=== PATIENT | male | born 1945 | race Caucasian/White ===

== ENCOUNTER 2023-07-09 00:40 | Observation (INO) | payer MEDICARE, SELFPAY ==
[2023-07-09] VITALS (12 sets, daily range): BP systolic 147–187; BP diastolic 70–99; PULSE 50–80; RESP 15–19; TEMP 36.6–36.8; O2SAT 94–98; BMI 31.9; BMI 32.3
--- NOTE | 2023-07-09 00:37 | ECG_ITS ---
APPROVED REPORT Exam: Resting ECG HR:69 bpm ECG Measurements Heart Rate 69 AXES UT 173 P 62 QRSd 104 QRS 54 QT 400 T 79 QTc 419 Conclusion SINUS RHYTHM NONSPECIFIC T-WAVE ABNORMALITY BORDERLINE ECG Electronically signed by : NICKIE MORROW, 07/20/2023 15:14:54
--- NOTE | 2023-07-09 00:57 | XR_ITS ---
PROCEDURE INFORMATION: Exam: XR Chest Exam date and time: 07/09/2023 12:59 AM Age: 78 years old Clinical indication: Pain; Chest pressure; Additional info: Cp TECHNIQUE: Imaging protocol: Radiologic exam of the chest. Views: 1 view. COMPARISON: No relevant prior studies available. FINDINGS: Lungs: Unremarkable. No consolidation. Pleural spaces: Unremarkable. No pleural effusion. No pneumothorax. Heart/Mediastinum: Unremarkable. No cardiomegaly. Bones/joints: Unremarkable. IMPRESSION: No acute findings.
[2023-07-09 01:04] LABS: Chloride 108 mmol/L (98-107); Potassium 4.1 mmoL/L (3.5-5.1); Sodium 139 mmol/L (136-145)
[2023-07-09 01:07] LABS: Alanine Aminotransferase 28 U/L (12-78); Albumin/Globulin Ratio 1.2 (1.1-1.8); Alkaline Phosphatase 148 U/L (38-126); Anion Gap 7.1 mEq/L (5-15); Aspartate Amino Transferase 36 U/L (17-59); Bilirubin,Total 1.2 mg/dl (0.2-1.3); Blood Urea Nitrogen 13 mg/dl (9-20); Calcium 9.3 mg/dl (8.4-10.2); Carbon Dioxide 28 mmol/L (22.0-30.0); Creatinine Clearance Estimated 71 mL/min (50-200); Estimated Glomerular Filt Rate 59 ml/min (>60); GFR (African American) 71 ML/MIN (>60); Globulin 3.4 g/dL (1.3-3.2); Glucose 144 mg/dl (74-100); Total Protein,Serum 7.4 g/dl (6.3-8.2)
[2023-07-09 01:08] LABS: Basophils # 0.1 K/mm3 (0-0.2); Eosinophils # 0.3 K/mm3 (0.0-0.4); Eosinophils % 5.7 % (0.1-12.0); Hematocrit 47.7 % (42.0-52.0); Hemoglobin 15.9 g/dL (14.1-18.0); Lymphocytes # 1.3 K/mm3 (0.7-4.5); Lymphocytes % 22.8 % (10-50); Mean Corpuscular HGB Conc 33.2 g/dL (31.8-35.4); Mean Corpuscular Hemoglobin 30.7 pg (27.0-31.2); Mean Corpuscular Volume 92.4 fl (80-94); Mean Platelet Volume 11.5 fl (7.4-10.4); Monocytes # 0.3 K/mm3 (0.1-1.0); Monocytes % 5.8 % (1.7-9.3); Neutrophils # 3.8 K/mm3 (1.8-7.8); Neutrophils % 64.8 % (37.0-80.0); Platelet Count 121 K/mm3 (142-424); Red Blood Count 5.17 M/mm3 (4.60-6.20); White Blood Count 5.8 K/mm3 (4.8-10.8)
[2023-07-09 01:19] LABS: Troponin I 0.02 ng/ml (0.00-0.034)
--- NOTE | 2023-07-09 01:33 | PC.NURSE ---
Dr. Fallon paged
--- NOTE | 2023-07-09 01:36 | PC.NURSE ---
2nd ekg completed at this time. pt voices no needs.
--- NOTE | 2023-07-09 01:39 | [facility].EDCP ---
Discharge Plan Disposition Chief Complaint: Chest Pain Referrals Follow up/Referrals: Provider,Referral, [Primary Care Provider] - See instructions Clinical Impressions Clinical Impression: Chest pain Discharge ED Provider: Vincenzo Farris General Chief Complaint: Chest Pain Stated Complaint: CP, L arm pain Time Seen by Provider: 07/09/23 00:50 Mode of Arrival: EMS Source of Information: Patient and EMS Limitations: No Limitations Description of Symptoms (Recalled from ER Triage Doc. by RN): Patient to ED via [facility] with complaints of midsternal chest pain that started around 2330. He states that prior in the day he had left arm pain that was relieved with advil. Patient denies SOA and described pain at a 1/10 after 324 chewable ASA and nitro spray administered compared to initial chest pain of 4/10 upon EMS arrival. History of Present Illness HPI narrative: 78-year-old male who states he has not seen a doctor in many years, has no known medical conditions, no prescriptions, no known drug allergies presents to the ER with concerns of left arm pain and chest pain. Patient states around 2 or 3 PM he was sitting in his recliner and developed left arm pain. He took ibuprofen and states it went away so he did not think much of it. He states around 11:30 PM he was laying down and started having left arm pain radiating to the left chest. He described as 4 out of 10 pain. Patient did have associated shortness of breath. EMS was called and patient was severely hypertensive with them. They administered 1 dose of nitro spray and his pain improved to a 1 out of 10. Patient also received 324 mg aspirin from EMS prior to arrival. His blood pressure also improved for them. Twelve-lead provided by EMS did not demonstrate findings of STEMI. On my assessment, patient states he still has 1 out of 10 pain but is breathing comfortably. He states he has never had similar symptoms, no personal cardiac history. No other associated symptoms. Related Data Allergies Allergy/AdvReac Type Severity Reaction Status Date / Time No Known Allergies Allergy Verified 07/09/23 01:50 [facility] Disclaimer: The information contained in this section may have been updated after the patient was seen, as this information can be updated by other users. Social History Smoking Status: Never smoker alcohol intake: never current occupational status: other Travel in the last 8 weeks: None ROS Obtained: Yes All systems reviewed & no additional complaints except as documented Constitutional Constitutional: Denies chills, Denies fever(s), Denies headache(s) and Denies weakness Eyes Eyes: Denies change in vision ENT Ears, Nose, Mouth, and Throat: Denies dizziness, Denies headache(s), Denies nasal congestion and Denies sore throat Cardiovascular Cardiovascular: Reports chest pain, Reports dyspnea and Denies leg edema Respiratory Respiratory: Denies cough and Reports dyspnea Gastrointestinal Gastrointestingal: Denies constipation, diarrhea, nausea or vomiting Genitourinary Male Genitourinary: Denies difficulty urinating Musculoskeletal Musculoskeletal: Denies arthralgias, Denies myalgias, Denies numbness and Denies tingling Integumentary/Breasts Skin/Breast: Denies change in pigmentation Neurologic Neurologic: Denies dizziness, Denies headache(s), Denies numbness, Denies tingling and Denies weakness Physical Exam General General appearance: alert and in no apparent distress Head Head exam: atraumatic and normocephalic Eye Eye exam: Present PERRL and EOMI ENT ENT exam: Present mucous membranes moist Neck Neck exam: Present normal inspection and full ROM Chest Chest inspection: Present symmetric chest wall rise Respiratory Respiratory exam: Present normal lung sounds bilaterally; Absent respiratory distress, wheezes or stridor Cardiovascular Cardiovascular exam: Present regular rate and normal rhythm Abdominal Exam Abdominal exam: Present soft; Absent distention, tenderness, guarding or rebound Extremities Exam Extremities exam: Present full ROM Neurological Exam Neurological exam: Present alert and oriented X3; Absent motor sensory deficit Psychiatric Psychiatric exam: Present normal affect and normal mood Skin Skin exam: Present warm and dry HEART Score HEART Score HEART Score assessment performed?: Yes History (anamnesis): Highly suspicious ECG: Non-specific disturbance Age: >65 years Risk factors: No known risk factors Troponin: </= normal limit HEART Score: 5 Critical Care Critical Care Time Critical Care Time: No Medical Decision Making Georgi Inquiry Pt receiving controlled substance: No Vital Signs Vital Signs: 07/09/23 00:40 Temperature 97.8 F Temperature Source Oral Pulse Rate [Right] 69 Respiratory Rate 16 Blood Pressure [Right Arm] 170/99 H Blood Pressure Mean [Right Arm] 122 Blood Pressure Source [Right Arm] Automatic Cuff Blood Pressure Position [Right Arm] Sitting 02 Sat by Pulse Oximetry 95 Oxygen Delivery Method Room Air Lab Data Labs: Lab Results 07/09/23 00:30: WBC 5.8, RBC 5.17, Hgb 15.9, Hct 47.7, MCV 92.4, MCH 30.7, MCHC 33.2, RDW 15.0, Plt Count 121 L, MPV 11.5 H, Neut % (Auto) 64.8, Lymph % (Auto) 22.8, Hyde % (Auto) 5.8, Eos % (Auto) 5.7, Baso % (Auto) 1.0, Neut # (Auto) 3.8, Lymph # (Auto) 1.3, Hyde # (Auto) 0.3, Eos # (Auto) 0.3, Baso # (Auto) 0.1, Sodium 139, Potassium 4.1, Chloride 108 H, Carbon Dioxide 28, Anion Gap 7.1, BUN 13, Creatinine 1.20, Estimated Creat Clear 71, Estimated GFR 59, Est GFR ( Amer) 71, Glucose 144 H, Calcium 9.3, Total Bilirubin 1.2, AST 36, ALT 28, Alkaline Phosphatase 148 H, Troponin I 0.02, Total Protein 7.4, Albumin 4.0, Globulin 3.4 H, Albumin/Globulin Ratio 1.2 07/09/23 00:30 07/09/23 00:30 Response Orders (Tests/Meds): ED MEDICATIONS Generic Name Dose Route Start Last Admin Trade Name Freq PRN Reason Stop Dose Admin Clopidogrel Bisulfate 300 mg 07/09/23 01:47 Clopidogrel 300mg Tablet PO 07/09/23 01:48 ONCE ONE Enoxaparin Sodium 95 mg 07/09/23 02:00 Enoxaparin 100mg/Ml Syringe 1 mg/kg (95 mg) 08/08/23 01:59 SQ Q12H [facility] Metoprolol Tartrate 25 mg 07/09/23 01:47 Metoprolol Tartrate 50mg Tablet PO 07/09/23 01:48 ONCE ONE ORDERS Category Date Time Status CXR --portable [XR chest portable] Stat Exams 07/09/23 00:57 Completed CBC w/Auto Diff [Complete Blood Count Auto Diff] Stat Lab 07/09/23 00:30 Completed CMP [Comprehensive Metabolic Panel] Stat Lab 07/09/23 00:30 Completed Trop I [Troponin I] Stat Lab 07/09/23 00:30 Completed Troponin I Q3H Lab 07/09/23 04:00 Ordered Troponin I Q3H Lab 07/09/23 07:00 Ordered MDM Narrative Medical Decision Narrative: In summary, this 78year old male with no known comorbidities presents to the emergency department today with left arm pain, chest pain, shortness of breath all of which have improved since receiving nitro spray from EMS. On initial evaluation patient is hemodynamically stable, afebrile, resting comfortably, 1 out of 10 pain and no shortness of breath on assessment. Cardiopulmonary exam is reassuring though patient is hypertensive. Remainder of exam benign. Differential diagnosis includes but is not limited to ACS, pneumothorax, esophageal spasm, muscle spasm, hypertension. Based on these concerns, I ordered cardiac workup. Initial EKG personally interpreted demonstrates normal sinus rhythm, rate 69, normal intervals, no STEMI, normal axis. Labs personally reviewed demonstrate initial troponin 0.02, no leukocytosis or anemia, CMP with slight hyperchloremia, nonspecific and nonactionable, BUN 13, creatinine 1.20, mild elevation in alkaline phosphatase, nonspecific, nonactionable at this time. In the setting of moderate heart score and troponin of 0.02, repeat EKG was ordered though patient remains asymptomatic. On second ECG identified sinus bradycardia, rate 55, normal axis, normal intervals, trace elevation in lead III, aVF but does not meet criteria for STEMI. XR personally interpreted demonstrates no acute intrathoracic abnormality. See radiology read for final interpretation. I called cardiology and discussed these findings as well as patient's current symptoms with Dr. Fallon. He recommended aspirin which had already been administered, he also recommended loading dose of 300 mg Plavix followed by 75 mg daily, Lovenox 1 mg/kg twice daily, metoprolol tartrate 25 mg twice daily, and daily aspirin 81 mg. Patient is bradycardic with heart rate in the low 50s so metoprolol was ordered but held, but all other medications have been administered. He is recommending admission. I discussed results and recommendations with the patient. He continues to be resting comfortably on reassessment and has not had any recurrence of his initial pains. He is amenable to the plan for admission. I discussed this case with the hospitalist including Dr. Fallon's recommendations for ongoing management. Patient has been accepted for admission.
--- NOTE | 2023-07-09 01:42 | PC.NURSE ---
paged dr hinton again via registration
--- NOTE | 2023-07-09 01:44 | PC.NURSE ---
call back from dr hinton
[2023-07-09] MEDS: ENOXAPARIN 100MG/ML SYRINGE 95 MG SQ ×2 (01:58→14:49)
--- NOTE | 2023-07-09 02:00 | EXP.HP ---
History of Present Illness *Admission Date: 07/09/23 *Reason for visit:: CP *History of present illness: This is a 78-year-old male with unknown past medical history, who states he has not seen a doctor in many years, no prescriptions, no known drug allergies presents to the ED with concerns of left arm pain and chest pain. Patient states around 2 or 3 PM he was sitting in his recliner and developed left arm pain. He took ibuprofen and states it went away so he did not think much of it. He states around 11:30 PM he was laying down and started having left arm pain radiating to the left chest. He described as 4 out of 10 pain. Patient did have associated shortness of breath. EMS was called and patient was severely hypertensive with them. They administered 1 dose of nitro spray and his pain improved to a 1 out of 10. Patient also received 324 mg aspirin from EMS prior to arrival. His blood pressure also improved for them. Twelve-lead provided by EMS did not demonstrate findings of STEMI. On my assessment, patient states he still has 1 out of 10 pain but is breathing comfortably. He states he has never had similar symptoms, no personal cardiac history. No other associated symptoms. Admitted for further work up. [facility] Disclaimer: The information contained in this section may have been updated after the patient was seen, as this information can be updated by other users. Medical History (Updated 07/09/23 @ 06:41 by Milton Candelaria APRN) Appendicitis Surgical History (Updated 07/09/23 @ 02:49 by Amber Campbell RN) H/O kidney removal History of appendectomy Family History (Updated 07/09/23 @ 02:49 by Amber Campbell RN) Other Family history of myocardial infarction Social History (Updated 07/09/23 @ 02:50 by Amber Campbell RN) Smoking Status: Never smoker alcohol intake: never current occupational status: retired and other Travel in the last 8 weeks: None Review of Systems Review of Systems Review of systems:: pertinent systems reviewed and negative unless documented below Constitutional Constitutional: Denies headache(s) and Denies weakness ENT Ears, Nose, Mouth, and Throat: Denies dizziness and Denies headache(s) *Musculoskeletal Musculoskeletal: Denies numbness and Denies tingling *Neurologic Neurologic: Denies dizziness, Denies headache(s), Denies numbness, Denies tingling and Denies weakness Meds Home Medications and Allergies New Prescriptions to Start Prescriptions: Allergies Allergy/AdvReac Type Severity Reaction Status Date / Time No Known Allergies Allergy Verified 07/09/23 01:50 Exam Data for Last 24 hours Vital signs and Labs for Last 24 Hours: Temp Pulse Resp BP Pulse Ox O2 Del Method 97.8 F 69 16 170/99 H 95 Room Air 07/09/23 00:40 07/09/23 00:40 07/09/23 00:40 07/09/23 00:40 07/09/23 00:40 07/09/23 00:40 Laboratory Results - last 24 hr 07/09/23 00:30: WBC 5.8, RBC 5.17, Hgb 15.9, Hct 47.7, MCV 92.4, MCH 30.7, MCHC 33.2, RDW 15.0, Plt Count 121 L, MPV 11.5 H, Neut % (Auto) 64.8, Lymph % (Auto) 22.8, Runnels % (Auto) 5.8, Eos % (Auto) 5.7, Baso % (Auto) 1.0, Neut # (Auto) 3.8, Lymph # (Auto) 1.3, Runnels # (Auto) 0.3, Eos # (Auto) 0.3, Baso # (Auto) 0.1, Sodium 139, Potassium 4.1, Chloride 108 H, Carbon Dioxide 28, Anion Gap 7.1, BUN 13, Creatinine 1.20, Estimated Creat Clear 71, Estimated GFR 59, Est GFR ( Amer) 71, Glucose 144 H, Calcium 9.3, Total Bilirubin 1.2, AST 36, ALT 28, Alkaline Phosphatase 148 H, Troponin I 0.02, Total Protein 7.4, Albumin 4.0, Globulin 3.4 H, Albumin/Globulin Ratio 1.2 I & O for Last 24 hours: Intake & Output 07/06/23 07/07/23 07/08/23 07/09/23 23:59 23:59 23:59 23:59 Weight 95.254 kg Constitutional Constitutional: mild distress and obese *Routine HEENT Exam Head: Present normocephalic Eye: Present EOMI and PERRL ENT: Present mucous membranes moist *Routine Neck Exam Neck: Present supple; Absent lymphadenopathy *Routine Respiratory Exam Respiratory: Present CTA bilaterally *Routine Cardiovascular Exam Cardiovascular: Present RRR, Normal S1, Normal S2 and bradycardia *Routine Abdominal Exam Abdominal: Present soft and normoactive bowel sounds; Absent tenderness *Routine Rectal Exam Rectal:: deferred *Routine Genitalia Exam Genitalia:: deferred *Routine Extremities Exam Extremities: Absent cyanosis, clubbing or edema *Routine Skin Exam Skin: Present warm; Absent rash *Routine Neurological Exam Neurological: Present alert and oriented X3 H&P: Result Imaging and Cardiology EKG: Status: image reviewed by me, Preliminary report and final report Assessment and Plan *Assessment and plan (1) Chest pain: Status: Acute Qualifiers: Chest pain type: unspecified Qualified Code(s): R07.9 - Chest pain, unspecified Category: Medical Code(s): R07.9 - Chest pain, unspecified (2) Troponin level elevated: Status: Acute Category: Medical Code(s): R79.89 - Other specified abnormal findings of blood chemistry (3) Bradycardia: Status: Acute Category: Medical Code(s): R00.1 - Bradycardia, unspecified (4) Hypertension: Status: Acute Qualifiers: Hypertension type: unspecified Qualified Code(s): I10 - Essential (primary) hypertension Category: Medical Code(s): I10 - Essential (primary) hypertension (5) Obesity (BMI 30.0-34.9): Status: Acute Category: Medical Code(s): E66.9 - Obesity, unspecified Plan 78-year-old male with unknown past medical history, who states he has not seen a doctor in many years, no prescriptions, no known drug allergies presents to the ED with concerns of left arm pain and chest pain. on arrival patient stable chest pain-free. Checks x-ray negative/. EKG with sinus rhythm. No ST changes. Nonspecific T variation. Initial troponin was 0.02, has been trending up. Cardiology was consulted. Discussed with the ER for admission. -Chest pain with trending troponin, hypertention and bradycardia: to rule out ACS continue Plavix aspirin and nitroglycerin given inroute and at the ER Monitor for chest pain. nitroglycerin sublingual as needed Started on metoprolol 25 twice daily. Being held because of the bradycardia Cardiology consult. Trending troponin. Continue monitoring morning labs Obtain lipid profile to assess for cardiac risk Ultrasound of the kidneys -Obesity: Encouraged weight management and reducing weight. Encouraged to establish PCP to follow-up on chronic conditions On Plavix and aspirin and statin. Protonix for GI bleed protection Full code Attending attestation Patient was seen and evaluated at the bedside myself, agree with YADIRA note. await cardiology eval, echo ordered
[2023-07-09] MEDS: CLOPIDOGREL 300MG TABLET 300 MG PO (02:02)
--- NOTE | 2023-07-09 02:18 | PC.NURSE ---
report given to wesley lopez. re-verified with waqas ramos that we are not giving the metoprolol at this time.
--- NOTE | 2023-07-09 02:30 | PC.NURSE ---
PT ARRIVED TO FLOOR AT THIS TIME
[2023-07-09] MEDS: 0.9 % SODIUM CHLORIDE 1000ML 1,000 ML 50 ML IV (02:34)
--- NOTE | 2023-07-09 03:10 | PC.NURSE ---
Pt asked for nurse to call and let his granddaughter know he was in the hospital, nurse called and was able to get ahold of granddaughter @[phone].
--- NOTE | 2023-07-09 03:11 | PC.NURSE ---
Pt is alert and oriented x4, and currently is tolerating RA well. Pt arrived to the unit approx. 0230, pt denies any current chest pain and denies needs. Pt is extremely pleasant and admits to taking no medications and no other issues besides chest pain that he states no longer exists. Pt is able to walk and dose not appear to require assistance with ADLs. Pt HR is slightly adrian and ranges from 50-55, Pt currently on telemetry to prior cheat pain. Pt denies any pain and needs at this time.
[2023-07-09 04:38] LABS: Troponin I 0.11 ng/ml (0.00-0.034)
[2023-07-09 07:46] LABS: Basophils % 0.6 % (0.1-2.0); Eosinophils # 0.3 K/mm3 (0.0-0.4); Eosinophils % 4.9 % (0.1-12.0); Hematocrit 47.2 % (42.0-52.0); Hemoglobin 15.2 g/dL (14.1-18.0); Lymphocytes # 1.2 K/mm3 (0.7-4.5); Mean Corpuscular HGB Conc 32.3 g/dL (31.8-35.4); Mean Corpuscular Hemoglobin 30.5 pg (27.0-31.2); Mean Corpuscular Volume 94.4 fl (80-94); Mean Platelet Volume 11.9 fl (7.4-10.4); Monocytes # 0.3 K/mm3 (0.1-1.0); Monocytes % 5.7 % (1.7-9.3); Neutrophils # 3.8 K/mm3 (1.8-7.8); Neutrophils % 67.9 % (37.0-80.0); Platelet Count 119 K/mm3 (142-424); Red Blood Count 4.99 M/mm3 (4.60-6.20); Red Cell Distribution Width 14.9 % (11.5-17.5); White Blood Count 5.6 K/mm3 (4.8-10.8)
[2023-07-09 07:52] LABS: Chol/HDL Ratio 11.2 (1-3.5); Cholesterol 236 mg/dl (140-200); HDL Cholesterol 21 mg/dl (40-60); Triglycerides 185 mg/dl (30-150); VLDL Cholesterol 37 mg/dL (0-40)
[2023-07-09 07:53] LABS: Alanine Aminotransferase 24 U/L (12-78); Albumin/Globulin Ratio 1.3 (1.1-1.8); Alkaline Phosphatase 117 U/L (38-126); Anion Gap 10.3 mEq/L (5-15); Aspartate Amino Transferase 33 U/L (17-59); Bilirubin,Total 1.2 mg/dl (0.2-1.3); Blood Urea Nitrogen 13 mg/dl (9-20); Calcium 9.1 mg/dl (8.4-10.2); Carbon Dioxide 23 mmol/L (22.0-30.0); Chloride 109 mmol/L (98-107); Creatinine Clearance Estimated 72 mL/min (50-200); Estimated Glomerular Filt Rate 59 ml/min (>60); GFR (African American) 71 ML/MIN (>60); Globulin 3.1 g/dL (1.3-3.2); Glucose 105 mg/dl (74-100); Magnesium 2.2 mg/dl (1.6-2.3); Potassium 4.3 mmoL/L (3.5-5.1); Sodium 138 mmol/L (136-145); Total Protein,Serum 7.1 g/dl (6.3-8.2)
[2023-07-09 07:58] LABS: Troponin I 0.14 ng/ml (0.00-0.034)
[2023-07-09 08:03] LABS: Direct LDL Cholesterol 140.87 mg/dL (100-129)
[2023-07-09 08:05] LABS: 25-OH Vitamin D, Total 33.5 ng/mL (30-100)
[2023-07-09] MEDS: PANTOPRAZOLE 40MG TABLET 40 MG PO (08:21)
--- NOTE | 2023-07-09 15:42 | PC.NURSE ---
Addendum entered by Kyleigh Mccormick RN 07/09/23 15:48: Patient normal sinus rhythm on heart monitor during shift Original Note: No chest pain noted this shift. VS stable and patient remained on room air.
[2023-07-09] MEDS: LISINOPRIL 10MG TABLET 10 MG PO (16:46)
[2023-07-10 00:35] VITALS: BP 200/100; PULSE 66; RESP 18; TEMP 36.4; O2SAT 96
--- NOTE | 2023-07-10 00:35 | PC.NURSE ---
Pt manual BP 200/100, Notified GABI Rose, no new orders at this time, Pt has cardiology consult later today on the 07/10/2023. Pt BP will not read via electronic data scope, manual BP taken
--- NOTE | 2023-07-10 02:20 | PC.NURSE ---
0024 EQ, TRIPE FINISHER NOTIFIED OF MANUAL BP 200/100, TRIPE FINISHER STATED PT IS TO BE CATHED THIS AFTERNOON, NO NEW ORDERS AT THIS TIME . 0040 THIS RN ENTERED PT ROOM TO RE-CHECK BP AND HR AND REASSESS SYMPTOMS. PT REFUSED VITALS AND STATED THAT HE WANTED TO GO HOME, PT STATED I HAVE BEEN HERE FOR ALMOST 2 DAYS AND YOU ALL HAVE DONE NOTHING FOR ME, I MIGHT WELL GO HOME PT VISIBLY UPSET AND ANXIOUS ABOUT ELEVATED BP BUT OTHERWISE STATES THAT HE FEELS FINE. PT DENIES CHEST PAIN AND ANY OTHERS SYMPTOMS. CHARGE NURSE Hina VALLEJO NOTIFIED AT THIS TIME AND CHARGE NURSE AND THIS NURSE ATTEMPTED TO EDUCATE PT ON REASON FOR HOSPITAL STAY AND PLAN OF CARE. 0057 EQ, TRIPE FINISHER NOTIFIED THAT PT WANTS TO AMA D/T NO INTERVENTIONS BEING DONE DURING HIS STAY SINCE ARRIVAL. 0100 EQ, TRIPE FINISHER PLACED AN ORDER FOR CLONIDINE AND DID NOT UPDATE THIS RN OR PT THAT AN ORDER WAS PLACED BEFORE PT LEFT HOSPITAL AMA 0105 EQ, TRIPE FINISHER ARRIVED IN ROOM EDUCATED PT ON REASONS FOR HOSPITAL STAY AND IMPLICATIONS OF LEAVING AMA, PT SIGNED AMA FORM THIS NURSE SIGNED AMA FORM WITNESS 0110 THIS NURSE REMOVED PT IV AT THIS TIME, PT STATED THAT HIS DAUGHTER WAS COMING TO GET HIM 0113 EQ, TRIPE FINISHER WROTE PT PRESCRIPTIONS TO FILL AT HOME PHARMACY 0115 PT LEFT FLOOR AT THIS TIME ACCOMPANIED BY ODALIS HOPKINS, PT WAITING IN ED WAITING ROOM FOR DAUGHTER TO ARRIVE.
--- NOTE | 2023-08-01 11:15 | EXP.DC.SUM ---
General Admission date:: 07/09/23 Discharge date: 07/10/23 HPI HPI HPI: This is a 78-year-old male with unknown past medical history, who states he has not seen a doctor in many years, no prescriptions, no known drug allergies presents to the ED with concerns of left arm pain and chest pain. Patient states around 2 or 3 PM he was sitting in his recliner and developed left arm pain. He took ibuprofen and states it went away so he did not think much of it. He states around 11:30 PM he was laying down and started having left arm pain radiating to the left chest. He described as 4 out of 10 pain. Patient did have associated shortness of breath. EMS was called and patient was severely hypertensive with them. They administered 1 dose of nitro spray and his pain improved to a 1 out of 10. Patient also received 324 mg aspirin from EMS prior to arrival. His blood pressure also improved for them. Twelve-lead provided by EMS did not demonstrate findings of STEMI. On my assessment, patient states he still has 1 out of 10 pain but is breathing comfortably. He states he has never had similar symptoms, no personal cardiac history. No other associated symptoms. Admitted for further work up. Hospital Course Hospital Course Hospital Course: patient left AMA, see nursing notes Exam Data for Last 24 hours Vital signs and Labs for Last 24 Hours: Temp Pulse Resp BP Pulse Ox O2 Del Method 97.5 F L 66 18 200/100 H 96 Room Air 07/10/23 00:35 07/10/23 00:35 07/10/23 00:35 07/10/23 00:35 07/10/23 00:35 07/10/23 00:40 DS: Diagnosis Discharge Diagnosis (1) Chest pain: Status: Acute Code(s): R07.9 - Chest pain, unspecified Qualifiers: Chest pain type: unspecified Qualified Code(s): R07.9 - Chest pain, unspecified (2) Troponin level elevated: Status: Acute Code(s): R79.89 - Other specified abnormal findings of blood chemistry (3) Bradycardia: Status: Acute Code(s): R00.1 - Bradycardia, unspecified (4) Hypertension: Status: Acute Code(s): I10 - Essential (primary) hypertension Qualifiers: Hypertension type: unspecified Qualified Code(s): I10 - Essential (primary) hypertension (5) Obesity (BMI 30.0-34.9): Status: Acute Code(s): E66.9 - Obesity, unspecified Meds Home Medications and Allergies Home Medications Medication Instructions Recorded Confirmed Type No Known Home Medications 07/09/23 07/09/23 History New Prescriptions to Start Prescriptions: Allergies Allergy/AdvReac Type Severity Reaction Status Date / Time No Known Allergies Allergy Verified 07/09/23 01:50 Discharge Plan Disposition Patient Disposition: Left Against Medical Advice Condition: Fair Providers Admit Provider: Jessenia Alvarado Attending Provider: Jessenia Alvarado
== END 2023-07-10 01:15 | disposition left against medical advice (07) ==
LOC: ER 02:00 → 2ND 02:04
PROVIDERS: Nurse Practitioner Family; Admitting Provider Internal Medicine; Emergency Provider Emergency Medicine; Visit Provider Internal Medicine
DX: R07.9 Chest pain, unspecified (principal); R79.89 Other specified abnormal findings of blood chemistry; R00.1 Bradycardia, unspecified; I10 Essential (primary) hypertension; E66.9 Obesity, unspecified; R06.02 Shortness of breath; Z68.32 Body mass index [BMI] 32.0-32.9, adult
CPT/HCPCS: 36415; 71045; 80053; 80061; 82306; 83036; 83735; 84484; 85025; 93005; 99285; G0378